=== PATIENT | male | born 1995 | race Hispanic/Latino ===

== ENCOUNTER 2017-08-30 21:52 | Inpatient (IN) | payer OTHER ==
[~2017-08-30] VITALS: Ht 177.8 cm; Wt 90.7 kg
[2017-08-30 22:45] LABS: BASOPHILS % (AUTO) 0.5 % (0.0-5.0); HEMATOCRIT 42.9 % (42-54); LYMPHOCYTES % (AUTO) 16.6 % (21.0-51.0); MEAN CORPUSCULAR HEMOGLOBIN 31.4 pg (27.0-33.0); MEAN CORPUSCULAR VOLUME 92.3 fL (79-99); MONOCYTES % (AUTO) 11.5 % (3.0-13.0); NEUTROPHILS % (AUTO) 70.4 % (40.0-77.0); PLATELET COUNT (AUTO) 262 K/uL (130-400); RED BLOOD CELL COUNT(AUTO) 4.65 MIL/uL (4.50-6.20); RED CELL DISTRIBUTION WIDTH 13.3 % (11.0-15.5); WHITE BLOOD COUNT (AUTO) 12.5 K/uL (4.8-10.8)
[2017-08-30 22:52] LABS: CREATININE 0.9 mg/dL (0.5-1.5); POTASSIUM 3.8 mmol/L (3.5-5.1)
[2017-08-30 22:57] LABS: ALBUMIN 4.3 g/dL (3.5-5.0); BILIRUBIN,DIRECT 0.1 mg/dL (0.0-0.3); BILIRUBIN,TOTAL 0.3 mg/dL (0.2-1.0); TOTAL PROTEIN, SERUM 8.3 g/dL (6.0-8.3)
[2017-08-30] MEDS ORDERED: KETOROLAC TROMETHAMINE 30MG/ML ONE (22:59)
[2017-08-31] MEDS ORDERED: VANCOMYCIN 1GM+NS 250ML 250 ML IV ONE (00:42)
[2017-08-31] MEDS ORDERED: MEROPENEM 1 GM VIAL ONE (00:42)
[2017-08-31] MEDS ORDERED: ONDANSETRON HCL MDV 20ML 2 MG/ML VIAL IVP PRN (01:00)
[2017-08-31] MEDS ORDERED: ACETAMINOPHEN-CODEINE 300/30MG TAB PO PRN (01:00)
[2017-08-31] MEDS ORDERED: MEROPENEM 500MG+NS 50ML 50 ML IV SCH (02:00)
[2017-08-31 04:00] VITALS: BP 163/75
[2017-08-31 05:40] LABS: HEMATOCRIT 41.4 % (42-54); MEAN CORPUSCULAR HEMOGLOBIN 31.4 pg (27.0-33.0); MEAN CORPUSCULAR HGB CONC 33.5 g/dL (32.0-36.0); MEAN CORPUSCULAR VOLUME 93.6 fL (79-99); PLATELET COUNT (AUTO) 244 K/uL (130-400); RED BLOOD CELL COUNT(AUTO) 4.42 MIL/uL (4.50-6.20); RED CELL DISTRIBUTION WIDTH 13.5 % (11.0-15.5)
[2017-08-31 06:06] LABS: ALBUMIN 3.6 g/dL (3.5-5.0); BILIRUBIN,TOTAL 0.6 mg/dL (0.2-1.0); CREATININE 0.9 mg/dL (0.5-1.5); POTASSIUM 4.5 mmol/L (3.5-5.1); TOTAL PROTEIN, SERUM 7.2 g/dL (6.0-8.3)
[2017-08-31 07:30] VITALS: BP 135/78
[2017-08-31] MEDS ORDERED: NICOTINE 21 MG/ 24 HR PATCH TD SCH (09:00)
[2017-08-31 11:00] VITALS: BP 131/74
[2017-08-31] MEDS: DOCUSATE SODIUM 100 MG CAP PO SCH (11:10)
[2017-08-31] MEDS: MEROPENEM 500 MG VIAL IVP SCH ×2 (12:01→19:34)
[2017-08-31 16:00] VITALS: BP 144/84
[2017-08-31] MEDS ORDERED: VANCOMYCIN PROTOCOL PER PHARMACY IV SCH (17:30)
[2017-08-31] MEDS ORDERED: COMPOUND IV REFRIGERATED 1 EACH IVSOLN MISC PRN (18:15)
[2017-08-31] MEDS: ENOXAPARIN SODIUM 40 MG/0.4 ML SYRINGE SQ SCH (18:28)
[2017-08-31] MEDS: VANCOMYCIN 1.5 GM in SODIUM CHLORIDE 0.9% 250 ML IV SCH (19:34)
[2017-08-31 20:00] VITALS: BP 145/81
[2017-08-31] MEDS: ZOSYN 3.375GM+NS 50ML 50 ML IV SCH (21:07)
[2017-09-01] VITALS (25 sets, daily range): BP systolic 87–153; BP diastolic 30–85
[2017-09-01] MEDS: ZOSYN 3.375GM+NS 50ML 50 ML IV SCH ×5 (03:19→21:17)
[2017-09-01] MEDS: MEROPENEM 500 MG VIAL IVP SCH ×2 (03:19→10:58)
[2017-09-01] MEDS ORDERED: SODIUM CHLORIDE 0.9% 1000ML 1,000 ML IV ONE (06:04)
[2017-09-01] MEDS ORDERED: LIDOCAINE HCL 1% 20 ML VIAL ONE (06:28)
[2017-09-01] MEDS ORDERED: BUPIVACAINE/PF 0.5% 30ML VIAL ONE (06:28)
[2017-09-01] MEDS ORDERED: GENTAMICIN SULFATE 80 MG/2 ML VIAL ONE (06:28)
[2017-09-01] MEDS ORDERED: ONDANSETRON HCL 4 MG/2 ML VIAL ONE ×3 (06:30→07:10)
[2017-09-01] MEDS ORDERED: DEXAMETHASONE SOD PHOSPHATE 10MG/ML 1ML VIAL ONE (06:31)
[2017-09-01] MEDS ORDERED: PROPOFOL 10 MG/ML 20ML VIAL IV ONE ×2 (06:31→06:43)
[2017-09-01] MEDS ORDERED: MIDAZOLAM HCL 1 MG/ML 2ML VIAL ONE (06:31)
[2017-09-01] MEDS ORDERED: FENTANYL CITRATE PF 50 MCG/1 ML 2ML VIAL ONE (06:32)
[2017-09-01] MEDS ORDERED: MORPHINE SULFATE 2 MG/ML 1ML SYG IVP PRN (08:30)
[2017-09-01] MEDS ORDERED: HYDROMORPHONE HCL 0.5 MG/0.5 ML ML IVP PRN (08:30)
[2017-09-01] MEDS: ENOXAPARIN SODIUM 40 MG/0.4 ML SYRINGE SQ SCH (09:00)
[2017-09-01] MEDS: VANCOMYCIN 1.5 GM in SODIUM CHLORIDE 0.9% 250 ML IV SCH ×2 (10:58→20:46)
[2017-09-01] MEDS: DOCUSATE SODIUM 100 MG CAP PO SCH (11:01)
[2017-09-01] MEDS: HYDROCODONE/ACETAMINOPHEN 5/325 MG TAB PO PRN (20:45)
[2017-09-02] VITALS: BP 146/78
[2017-09-02] MEDS: ZOSYN 3.375GM+NS 50ML 50 ML IV SCH ×4 (03:16→18:56)
[2017-09-02 04:00] VITALS: BP 128/80
[2017-09-02] MEDS: HYDROCODONE/ACETAMINOPHEN 5/325 MG TAB PO PRN ×2 (06:07→18:57)
[2017-09-02] MEDS: DOCUSATE SODIUM 100 MG CAP PO SCH (08:43)
[2017-09-02] MEDS: ENOXAPARIN SODIUM 40 MG/0.4 ML SYRINGE SQ SCH (08:45)
[2017-09-02] MEDS: VANCOMYCIN 1.75 GM in SODIUM CHLORIDE 0.9% 250 ML IV SCH ×2 (10:07→21:18)
[2017-09-02 12:00] VITALS: BP 145/79
[2017-09-02 16:00] VITALS: BP 134/73
[2017-09-02 20:30] VITALS: BP 135/78
[2017-09-03] VITALS: BP 149/91
[2017-09-03] MEDS: ZOSYN 3.375GM+NS 50ML 50 ML IV SCH ×4 (03:17→23:59)
[2017-09-03 04:00] VITALS: BP 127/61
[2017-09-03 05:10] LABS: BASOPHILS % (AUTO) 0.8 % (0.0-5.0); EOSINOPHILS % (AUTO) 2.9 % (0.0-8.0); HEMATOCRIT 42.9 % (42-54); LYMPHOCYTES % (AUTO) 25.1 % (21.0-51.0); MEAN CORPUSCULAR HGB CONC 34.4 g/dL (32.0-36.0); MONOCYTES % (AUTO) 10.9 % (3.0-13.0); NEUTROPHILS % (AUTO) 60.3 % (40.0-77.0); PLATELET COUNT (AUTO) 247 K/uL (130-400); RED BLOOD CELL COUNT(AUTO) 4.61 MIL/uL (4.50-6.20); RED CELL DISTRIBUTION WIDTH 13.3 % (11.0-15.5); WHITE BLOOD COUNT (AUTO) 8.2 K/uL (4.8-10.8)
[2017-09-03 05:13] LABS: CREATININE 0.8 mg/dL (0.5-1.5); POTASSIUM 3.7 mmol/L (3.5-5.1)
[2017-09-03 07:30] VITALS: BP 134/72
[2017-09-03] MEDS: ENOXAPARIN SODIUM 40 MG/0.4 ML SYRINGE SQ SCH (09:25)
[2017-09-03] MEDS: DOCUSATE SODIUM 100 MG CAP PO SCH (09:25)
[2017-09-03] MEDS: VANCOMYCIN 1.75 GM in SODIUM CHLORIDE 0.9% 250 ML IV SCH ×2 (10:07→22:00)
[2017-09-03 11:00] VITALS: BP 156/87
[2017-09-03 16:00] VITALS: BP 126/83
[2017-09-03 20:00] VITALS: BP 149/82
[2017-09-04] VITALS: BP 146/98
[2017-09-04 04:00] VITALS: BP 143/88
[2017-09-04 08:16] VITALS: BP 131/68
[2017-09-04] MEDS: ZOSYN 3.375GM+NS 50ML 50 ML IV SCH ×2 (09:00→09:25)
[2017-09-04] MEDS: DOCUSATE SODIUM 100 MG CAP PO SCH (09:24)
[2017-09-04] MEDS: ENOXAPARIN SODIUM 40 MG/0.4 ML SYRINGE SQ SCH (09:25)
[2017-09-04] MEDS: VANCOMYCIN 1.75 GM in SODIUM CHLORIDE 0.9% 250 ML IV SCH (10:00)
[2017-09-04] MEDS ORDERED: TYL3B PO (10:54)
[2017-09-04 12:19] VITALS: BP 138/70
== END 2017-09-04 12:00 | disposition home or self-care (01) | DRG 571 ==
LOC: EDH 21:52 → EDHIP 21:53 → OBSVTOIN 21:53 → 3DH 08-31 01:23
PROVIDERS: ADMIT Internal Medicine Nephrology; ATTEND Internal Medicine Nephrology
PROC: 0J9Q0ZZ Drainage of Right Foot Subcutaneous Tissue and Fascia, Open Approach (ICD-10-PCS; 2017-09-01)
PROC: 0JBQ0ZZ Excision of Right Foot Subcutaneous Tissue and Fascia, Open Approach (ICD-10-PCS; principal; 2017-09-01 06:35)
DX: L03.031 Cellulitis of right toe (principal); L02.611 Cutaneous abscess of right foot; F17.200 Nicotine dependence, unspecified, uncomplicated; L97.519 Non-pressure chronic ulcer of other part of right foot with unspecified severity; B95.62 Methicillin resistant Staphylococcus aureus infection as the cause of diseases classified elsewhere
CPT/HCPCS: 36415; 73660; 80048; 80053; 80076; 80202; 85025; 85027; 87070; 87076; 87077; 87186; 87205; A4218; A4606; A6266; J1100; J1170; J1580; J1650; J1885; J2185; J2250; J2405; J2543; J2704; J3010; J3370; J3490; J7030